=== PATIENT | female | born 1995 | race Caucasian/White ===

== ENCOUNTER 2018-09-12 17:34 | Emergency (ER) | payer OTHER, MEDICAID ==
[2018-09-12 18:51] LABS: URINE BLOOD (Dip) POC Negative (NEGATIVE); URINE GLUCOSE (Dip) POC Negative (NEGATIVE); URINE KETONES (Dip) POC Trace (NEGATIVE); URINE LEUKOCYTE EST (Dip) POC Negative (NEGATIVE); URINE NITRITE (Dip) POC Negative (NEGATIVE); URINE TOTAL PROTEIN POC Trace (NEGATIVE)
== END 2018-09-12 19:57 | disposition home or self-care (01) ==
LOC: FTE 17:34
DX: J02.9 Acute pharyngitis, unspecified (principal); M54.5 Low back pain
CPT/HCPCS: 81003; 81025; 87086; 99283